=== PATIENT | male | born 1970 | race Caucasian/White ===

== ENCOUNTER 2023-09-20 21:24 | Emergency (ER) | payer MEDICARE, MEDICAID, SELFPAY ==
--- NOTE | 2023-09-20 | ECG_ITS ---
Test Reason : SEIZURE Blood Pressure : / mmHG Vent. Rate : 089 BPM Atrial Rate : 089 BPM P-R Int : 140 ms QRS Dur : 084 ms QT Int : 364 ms P-R-T Axes : 050 049 036 degrees QTc Int : 442 ms Normal sinus rhythm Normal ECG When compared with ECG of 25-JUL-2004 21:42, No significant change was found Referred By: Generic ED Physician Electronically Signed By:ANDRES PROCTOR MD
[2023-09-20 21:37] VITALS: BP 130/90; BP 151/103; PULSE 89; PULSE 90; RESP 18; TEMP 36.6; O2SAT 96; BMI 25.8
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
[2023-09-20 22:15] LABS: MANUAL DIFF FLAG NO
[2023-09-20 22:16] LABS: Basophils Absolute Auto 0.1 X10*3/uL (0.0-0.2); Basophils Percent Auto 0.5 % (0-2); Eosinophils Absolute Auto 0.2 X10*3/uL (0.0-0.4); Eosinophils Percent Auto 2.1 % (0-4); Hematocrit 35.9 % (42.0-52.0); Hemoglobin 12.7 g/dl (14.0-18.0); Imm Gran Abs Auto 0.03 X10*3/uL (0.00-0.03); Imm Gran Pct Auto 0.3 % (0.0-0.4); Lymphocytes Absolute Auto 2.6 X10*3/uL (1.2-4.9); Lymphocytes Percent Auto 23.8 % (20-40); Mean Corpuscular HGB Conc 35.4 g/dl (31.0-36.0); Mean Corpuscular Hemoglobin 32.7 pg (27.0-33.0); Mean Corpuscular Volume 92.5 fL (80.0-98.0); Mean Platelet Volume 9.5 fL (9.4-12.4); Monocytes Absolute Auto 0.6 X10*3/uL (0.1-1.2); Monocytes Percent Auto 5.1 % (2-11); Neutrophils Absolute Auto 7.6 x10*3/uL (2.0-8.3); Neutrophils Percent Auto 68.2 % (45-73); Platelet Count 225 X10*3/uL (160-400); Red Blood Count 3.88 X10*6/uL (4.60-5.80); Red Cell Distribution Width 12.7 % (11.0-16.0); White Blood Count 11.1 X10*3/uL (4.8-10.8)
[2023-09-20 22:23] LABS: Prothrombin Time 12.2 SEC (11.1-13.3)
[2023-09-20 22:26] LABS: Lactic Acid 1.4 mmol/L (0.5-2.0)
[2023-09-20 22:31] LABS: Alanine Aminotransferase 19 U/L (0-40); Albumin Level 3.8 g/dL (3.5-5.0); Alkaline Phosphatase 68 U/L (39-117); Anion Gap 13 (12-20); Aspartate Amino Transferase 16 U/L (5-37); Bilirubin Total 0.3 mg/dL (0.0-1.0); Blood Urea Nitrogen 11 mg/dL (9-16); Calcium 8.9 mg/dL (8.4-10.2); Carbon Dioxide 23 mmol/L (22-29); Chloride 105 mmol/L (96-108); Creatinine Clr Calc Pharmacy 110.2; Estimated Glomerular Filt Rate > 60; Glucose Random 133 mg/dL (60-115); Potassium 3.7 mmol/L (3.3-5.1); Sodium 137 mmol/L (135-145); Total Protein 6.5 g/dL (6.5-8.0)
[2023-09-20 22:42] LABS: Ethanol < 10 mg/dL; Magnesium 1.9 mg/dL (1.6-2.6); Troponin-I High Sensitivity < 2.7 ng/L (<3.5-35.0)
--- NOTE | 2023-09-20 22:48 | PC.NURSE ---
Pt resting comfortably in bed. Plan of care ongoing.
[2023-09-20 23:13] LABS: Appearance Urine Clear; Color Urine Yellow; Glucose Urine UA Negative (Negative); Leukocyte Esterase Urine Small (1+) (Negative); Nitrite Urine Negative (Negative); UMIC TRIGGER UACC YES; Urine Blood Negative (Negative); Urine Ketones Negative (Negative); Urine Protein Negative (Neg-Trace)
[2023-09-20 23:17] LABS: Bacteria Urine None Seen (None Seen); Hyaline Casts Urine 0-2 /LPF (0-2); RBC Urine 0-2 /HPF (0-2); Squamous Epithelial Cell Urine 0-2 /HPF (0-2); UACC Culture Trigger YES
[2023-09-20 23:21] LABS: Amphetamine Screen Urine Not Detected (Not Detect); Barbiturates, Urine Not Detected (Not Detect); Benzodiazepines Screen Urine Not Detected (Not Detect); Cannabinoid Screen Urine POSITIVE (Not Detect); Cocaine Screen Urine Not Detected (Not Detect); Fentanyl, urine Not Detected (Not Detect); Opiate Screen Urine Not Detected (Not Detect); Phencyclidine Screen Urine Not Detected (Not Detect)
[2023-09-21] MEDS: cefuroxime axetiL 500 MG TABLET PO (00:03)
--- NOTE | 2023-09-21 00:06 | PC.NURSE ---
Pt ca&ox4, no signs of distress. Pt medicated per mar. Plan of care ongoing.
--- NOTE | 2023-09-21 00:22 | MHC.EDTECH ---
call out to nathanael at 0020 to book transport for pt back home, estimated eta given was 0100
== END 2023-09-21 02:05 | disposition home or self-care (01) ==
PROVIDERS: Emergency Provider Emergency Medicine; PCP Family Medicine
DX: N39.0 Urinary tract infection, site not specified (principal); R56.9 Unspecified convulsions; Z87.820 Personal history of traumatic brain injury; Z79.899 Other long term (current) drug therapy; Z91.148 Patient's other noncompliance with medication regimen for other reason
CPT/HCPCS: 36415; 80053; 80307; 81001; 83605; 83735; 84484; 85025; 85610; 87086; 93005; 99283; 99284

== ENCOUNTER → 2023-09-20 22:11 | Outpatient (BNV) | payer MEDICARE, MEDICAID, SELFPAY | PROVIDERS: Emergency Provider Emergency Medicine; PCP Family Medicine; Visit Provider Internal Medicine Cardiovascular Disease | DX: R56.9 Unspecified convulsions (principal) | CPT/HCPCS: 93010 ==

== ENCOUNTER 2024-06-10 08:36 | Emergency (ER) | payer MEDICARE, MEDICAID, SELFPAY ==
[2024-06-10 08:38] VITALS: BP 145/94; BP 145/98; PULSE 80; PULSE 85; RESP 14; TEMP 36.6; O2SAT 97; O2SAT 98; BMI 22.5
--- NOTE | 2024-06-10 08:44 | ECG_ITS ---
Test Reason : SEIZURES Blood Pressure : / mmHG Vent. Rate : 068 BPM Atrial Rate : 068 BPM P-R Int : 126 ms QRS Dur : 098 ms QT Int : 400 ms P-R-T Axes : 053 061 050 degrees QTc Int : 425 ms Normal sinus rhythm Normal ECG When compared with ECG of 20-SEP-2023 22:11, No significant change was found Referred By: Gabby Lr Electronically Signed By:ANDRES PROCTOR MD
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
[2024-06-10 08:54] VITALS: BP 139/96; PULSE 74; RESP 17; O2SAT 98
[2024-06-10 09:25] LABS: Basophils Percent Auto 0.8 % (0-2); Eosinophils Absolute Auto 0.1 X10*3/uL (0.0-0.4); Eosinophils Percent Auto 1.7 % (0-4); Hematocrit 36.7 % (42.0-52.0); Hemoglobin 13.5 g/dl (14.0-18.0); Imm Gran Abs Auto 0.01 X10*3/uL (0.00-0.03); Imm Gran Pct Auto 0.2 % (0.0-0.4); Lymphocytes Absolute Auto 1.3 X10*3/uL (1.2-4.9); Lymphocytes Percent Auto 27.6 % (20-40); MANUAL DIFF FLAG NO; Mean Corpuscular HGB Conc 36.8 g/dl (31.0-36.0); Mean Corpuscular Hemoglobin 32.5 pg (27.0-33.0); Mean Corpuscular Volume 88.4 fL (80.0-98.0); Monocytes Absolute Auto 0.4 X10*3/uL (0.1-1.2); Monocytes Percent Auto 7.9 % (2-11); Neutrophils Percent Auto 61.8 % (45-73); Red Blood Count 4.15 X10*6/uL (4.60-5.80); Red Cell Distribution Width 11.8 % (11.0-16.0); White Blood Count 4.8 X10*3/uL (4.8-10.8)
[2024-06-10 09:31] LABS: Lactic Acid 1.3 mmol/L (0.5-2.0)
[2024-06-10 09:34] LABS: Alanine Aminotransferase 81 U/L (0-40); Alkaline Phosphatase 81 U/L (39-117); Anion Gap 12 (12-20); Aspartate Amino Transferase 56 U/L (5-37); Bilirubin Direct 0.4 mg/dL (0.0-0.5); Blood Urea Nitrogen 11 mg/dL (9-16); Calcium 9.1 mg/dL (8.4-10.2); Carbon Dioxide 23 mmol/L (22-29); Chloride 106 mmol/L (96-108); Creatinine Clr Calc Pharmacy 120.7; Estimated Glomerular Filt Rate > 60; Ethanol < 10 mg/dL; Glucose Random 103 mg/dL (60-115); Lipase 17 U/L (8-78); Magnesium 1.6 mg/dL (1.6-2.6); Potassium 3.8 mmol/L (3.3-5.1); Sodium 137 mmol/L (135-145); Total Protein 6.6 g/dL (6.5-8.0)
[2024-06-10 09:59] LABS: Platelet Count 132 X10*3/uL (160-400)
--- NOTE | 2024-06-10 10:30 | PC.NURSE ---
Pt is now more alert than when he first arrived, he does not remember being brought in this morning. Pt has a current plan of care with neuro for THC, at this time since being at [facility] he has not been able to smoke. PT was seen at [facility] this weekend as well as being started on Keppra, pt stating meds no longer work for him but he was willing to try. Pt labs are back, to place d/c for patient to return to [facility] at this time.
[2024-06-10 11:36] VITALS: BP 139/96; PULSE 74; RESP 17; TEMP 37.1; O2SAT 98
== END 2024-06-10 11:36 | disposition home or self-care (01) ==
PROVIDERS: Emergency Provider Emergency Medicine; PCP Family Medicine
DX: G40.909 Epilepsy, unspecified, not intractable, without status epilepticus (principal); Z87.820 Personal history of traumatic brain injury
CPT/HCPCS: 36415; 80048; 80076; 80307; 82550; 83605; 83690; 83735; 85025; 93005; 99283; 99284

== ENCOUNTER → 2024-06-10 08:44 | Outpatient (BNV) | payer MEDICARE, MEDICAID, SELFPAY | PROVIDERS: Emergency Provider Emergency Medicine; PCP Family Medicine; Visit Provider Internal Medicine Cardiovascular Disease | DX: G40.89 Other seizures (principal) | CPT/HCPCS: 93010 ==

== ENCOUNTER 2024-07-11 18:50 | Emergency (ER) | payer MEDICARE, MEDICAID, SELFPAY ==
--- NOTE | ~2024-07-11 | CT_ITS ---
EXAMINATION: NONCONTRAST HEAD CT INDICATION INFORMATION: Headache COMPARISON: None TECHNIQUE: Noncontrast CT examinations of the head was performed. Coronal and sagittal images were created for each examination at the technologist workstation. This CT examination was performed using dose optimization techniques as appropriate, variously including the following: *Automated exposure control *Adjustment of mA and/or kV according to patient size (this includes techniques or standardized protocols for targeted exams where dose is matched to indication/reason for exam; i.e. extremities or head) *Use of iterative reconstruction technique DLP: 676 mGy-cm FINDINGS: Head: There is no evidence of acute intracranial hemorrhage or territorial infarction. No abnormal mass effect or midline shift is seen. Seo to white matter differentiation is well preserved. No extra-axial fluid collections are identified. No hydrocephalus. No significant volume loss. There is no abnormal attenuation within the brain parenchyma. No acute osseous or soft tissue abnormality. Mucosal thickening in the left frontal and anterior ethmoid air cells. CT/CT head/brain wo IV con IMPRESSION: No acute intracranial abnormality. Mucosal thickening in the left frontal and anterior ethmoid air cells. Electronically signed by: Tariq uLna MD 07/11/2024 09:26 PM EST
[2024-07-11 18:58] VITALS: BP 136/86; PULSE 84; O2SAT 97
[2024-07-11 18:59] VITALS: BP 142/79; PULSE 73; RESP 18; TEMP 36.3; O2SAT 97; BMI 23.4
--- NOTE | 2024-07-11 19:41 | ED.SEIZURE ---
HPI - Seizure General Chief Complaint: Seizure Stated Complaint: SEIZURE Time Seen by Provider: 07/11/24 19:00 Source: patient, EMS and old records reviewed Mode of arrival: EMS Limitations: no limitations History of Present Illness ED Provider: ALYSSA DELGADO Narrative: 53 yo male with PMH of ETOH use disorder, seizures with about 20+ per month since a TBI in 1999 he tells me he has been in either [facility] or [facility] since June due to ETOH relapse after his first DC from [facility] early June. He has been on keppra he thinks since [facility] last time he was here they had him on 750mg BID of keppra. Today reportedly had severel [facility] and EMS noted he had another 10 second GTC seizure. On arrival to the ED when I saw him he was fluent and carrying on a conversation and able to remember all events. He then tells me to fuck off and not touch him or his head. MD complaint: seizure Onset (ago): hour(s) Description of Episode: loss of consciousness and tonic-clonic movement -: minutes(s) Witnessed: Yes - by Bystander Trauma: No Seizure History: Yes Possible Precipitating Event: other (unclear he states he takes his medications and has not drank in a month) Associated symptoms: other (headache) Treatments prior to arrival: benzodiazepines (IM 10mg versed) Related Data Previous Rx's ?Medication ?Instructions ?Recorded cefuroxime axetil 500 mg tablet 500 mg PO BID #13 tabs 09/20/23 Allergies Allergy/AdvReac Type Severity Reaction Status Date / Time lamotrigine [From Lamictal] Allergy Unknown Verified 07/11/24 19:02 lorazepam [From Ativan] Allergy Unknown Verified 07/11/24 19:02 olanzapine [From Zyprexa] Allergy Unknown Verified 07/11/24 19:02 Penicillins Allergy Unknown Verified 07/11/24 19:02 Review of Systems Review of Systems: Constitutional : No Fever, No Chills, No Fatigue ENT/Mouth : No sore throat, No Rhinorrhea Eyes: No Eye Pain, No Swelling, No Redness Cardiovascular : No Chest Pain, No SOB, No Dyspnea on Exertion Respiratory : No Cough, No Sputum Gastrointestinal : No Nausea, No Vomiting, No Diarrhea, No abdominal Pain Genitourinary : No Dysuria, No Urinary Frequency, No Hematuria, Musculoskeletal : No joint pain, No Myalgias, No Joint Swelling Skin : No Skin Lesions, No rash Neuro : No Weakness, No Numbness, No Dizziness, positive Headache Psych : No Anxiety/Panic, No Depression Heme/Lymph: No Bruising, No Bleeding,No Lymphadenopathy Endocrine : No Polyuria, No Polydipsia All other systems reviewed and are negative [facility] Past Medical History Attestation statement: The following information was validated with the patient. Source: old records reviewed Medical History Epilepsy Social History Social History Patient Tobacco Use Status: Tobacco use Unknown Advance Directives: No Advance Directives Information Provided: No Do you have a plan to hurt others: No Plan Physical Exam Vital Signs: Vital Signs: Last Vital Signs Temp 97.3 F 07/11/24 18:59 Pulse 73 07/11/24 18:59 Resp 18 07/11/24 18:59 BP 142/79 H 07/11/24 18:59 Pulse Ox 97 07/11/24 18:59 O2 Del Method Room Air 07/11/24 18:59 BMI result Body Mass Index 23.4 Appearance: Alert. Oriented X3. No acute distress. He is refusing us to help position him while he sleeps and keeps stating don't touch his fucking head. He will not fully participate in the exam Eyes: Pupils equal, round and reactive to light. ENT: Pharynx normal. no acute trauma noted old scars but no new signs of trauma he also tells me he remembered the staff helping him sit down Neck: Normal inspection. Neck supple. CVS: Normal heart rate and rhythm. Pulses normal. Respiratory: No respiratory distress. Breath sounds normal. Abdomen: Soft and nontender. Skin: Skin warm and dry. Normal skin color. Normal skin turgor. Extremities: No lower extremity edema. No calf ttp Neuro: Oriented X 3. no obvious focal deficit, moving all extremities, withdraws and localizes Medical Decision Making Medical Decision Making MDM Narrative: 53 yo male with PMH of ETOH use disorder, seizures with about 20+ per month since a TBI in 1999 now here with reported seizure several of them and c/o headache beforehand. At this time I have ordered labs, CT head, he is belligerent unclear if this is him postictal or baseline. Will observe closely and he was not sent over with records from [facility]. Differential Diagnosis Differential Diagnoses: The differential diagnosis associated with the presentation includes seizure, ICH, headache Admission/Observation Consideration of admission/observation: Escalation of care including admission/observation considered GCS 15, CT head negative, normal HCO3 and no tachycardia presentation again similar to his prior visit with VS and labs not matching several seizures he has been observed and is at his baseline stable for DC asking to leave states he wants to go back Lab Data MDM Lab Attestation statement: I reviewed the patient's lab results. 07/11/24 19:57 07/11/24 19:57 Labs: Lab Results 07/11/24 Range/Units 19:57 WBC 8.7 (4.8-10.8) X10*3/uL RBC 4.49 L (4.60-5.80) X10*6/uL Hgb 14.0 (14.0-18.0) g/dl Hct 39.4 L (42.0-52.0) % MCV 87.8 (80.0-98.0) fL MCH 31.2 (27.0-33.0) pg MCHC 35.5 (31.0-36.0) g/dl RDW 11.9 (11.0-16.0) % Plt Count 222 D (160-400) X10*3/uL MPV 9.0 L (9.4-12.4) fL Immature Gran % (Auto) 0.2 (0.0-0.4) % Neut % (Auto) 54.1 (45-73) % Lymph % (Auto) 32.6 (20-40) % [place] % (Auto) 7.3 (2-11) % Eos % (Auto) 5.0 H (0-4) % Baso % (Auto) 0.8 (0-2) % Lymph # (Auto) 2.8 (1.2-4.9) X10*3/uL [place] # (Auto) 0.6 (0.1-1.2) X10*3/uL Eos # (Auto) 0.4 (0.0-0.4) X10*3/uL Baso # (Auto) 0.1 (0.0-0.2) X10*3/uL Abs Immat Gran (auto) 0.02 (0.00-0.03) X10*3/uL Absolute Neuts (auto) 4.7 (2.0-8.3) x10*3/uL Absolute Nucleated RBC 0.000 (0.0-0.012) X10*3/uL Nucleated RBC % (auto) 0.0 (0.0-0.2) /100WBC Sodium 137 (135-145) mmol/L Potassium 3.8 (3.3-5.1) mmol/L Chloride 108 (96-108) mmol/L Carbon Dioxide 22 (22-29) mmol/L Anion Gap 11 L (12-20) BUN 19 H (9-16) mg/dL Creatinine 0.87 (0.5-1.4) mg/dL Estim Creat Clear Calc 112.2 Estimated GFR > 60 Random Glucose 95 (60-115) mg/dL Calcium 9.0 (8.4-10.2) mg/dL Magnesium 2.0 (1.6-2.6) mg/dL Total Bilirubin 0.4 (0.0-1.0) mg/dL Direct Bilirubin 0.1 (0.0-0.5) mg/dL AST 34 (5-37) U/L ALT 57 H (0-40) U/L Alkaline Phosphatase 78 (39-117) U/L Total Protein 6.8 (6.5-8.0) g/dL Albumin 4.1 (3.5-5.0) g/dL Independent Interpretation I performed an independent interpretation of an: CT Scan (normal ) Radiology Impression Discussion of test interpretation with radiology: I have reviewed the radiologist's reading. Independent Historian Clinical information obtained from an independent historian. History obtained from or confirmed by: EMS External Record Review External record reviewed: Outpatient record Discharge Plan Discharge Clinical Impression: Epilepsy Qualifiers: Epilepsy type: unspecified Intractability: not intractable Status epilepticus: without status epilepticus Qualified Code(s): G40.909 - Epilepsy, unspecified, not intractable, without status epilepticus Patient Disposition: Home, Self-Care Instructions: Epilepsy (ED) Additional Instructions: CT head negative labs reassuring no seizures in ED return for any worsening symptoms or concerns. Prescriptions: No Action cefuroxime axetil 500 mg tablet 500 mg PO BID Qty: 13 0RF Print Language: Kenyan
--- NOTE | 2024-07-11 19:48 | PC.NURSE ---
Pt. to CT scan at this time. Pt. is repeatedly threatening staff not to touch his head, MD at bedside
[2024-07-11 20:03] LABS: MANUAL DIFF FLAG NO
[2024-07-11 20:06] LABS: Basophils Absolute Auto 0.1 X10*3/uL (0.0-0.2); Basophils Percent Auto 0.8 % (0-2); Eosinophils Absolute Auto 0.4 X10*3/uL (0.0-0.4); Hematocrit 39.4 % (42.0-52.0); Imm Gran Abs Auto 0.02 X10*3/uL (0.00-0.03); Imm Gran Pct Auto 0.2 % (0.0-0.4); Lymphocytes Absolute Auto 2.8 X10*3/uL (1.2-4.9); Lymphocytes Percent Auto 32.6 % (20-40); Mean Corpuscular HGB Conc 35.5 g/dl (31.0-36.0); Mean Corpuscular Hemoglobin 31.2 pg (27.0-33.0); Mean Corpuscular Volume 87.8 fL (80.0-98.0); Monocytes Absolute Auto 0.6 X10*3/uL (0.1-1.2); Monocytes Percent Auto 7.3 % (2-11); Neutrophils Absolute Auto 4.7 x10*3/uL (2.0-8.3); Neutrophils Percent Auto 54.1 % (45-73); Platelet Count 222 X10*3/uL (160-400); Red Blood Count 4.49 X10*6/uL (4.60-5.80); Red Cell Distribution Width 11.9 % (11.0-16.0); White Blood Count 8.7 X10*3/uL (4.8-10.8)
[2024-07-11 20:21] LABS: Alanine Aminotransferase 57 U/L (0-40); Albumin Level 4.1 g/dL (3.5-5.0); Alkaline Phosphatase 78 U/L (39-117); Anion Gap 11 (12-20); Aspartate Amino Transferase 34 U/L (5-37); Bilirubin Direct 0.1 mg/dL (0.0-0.5); Bilirubin Total 0.4 mg/dL (0.0-1.0); Blood Urea Nitrogen 19 mg/dL (9-16); Carbon Dioxide 22 mmol/L (22-29); Chloride 108 mmol/L (96-108); Creatinine Clr Calc Pharmacy 112.2; Estimated Glomerular Filt Rate > 60; Glucose Random 95 mg/dL (60-115); Potassium 3.8 mmol/L (3.3-5.1); Sodium 137 mmol/L (135-145); Total Protein 6.8 g/dL (6.5-8.0)
--- NOTE | 2024-07-11 21:07 | MHC.EDTECH ---
called Mariah Mas 3x for Medication information
--- NOTE | 2024-07-12 01:02 | PC.NURSE ---
EMS at bedside for transport.
[2024-07-12 01:28] VITALS: BP 142/79; PULSE 73; RESP 18; TEMP 36.3; O2SAT 97
== END 2024-07-12 01:10 | disposition home or self-care (01) ==
PROVIDERS: Emergency Provider Emergency Medicine; PCP Family Medicine
DX: G40.909 Epilepsy, unspecified, not intractable, without status epilepticus (principal); R55 Syncope and collapse; R51.9 Headache, unspecified; Z79.899 Other long term (current) drug therapy
CPT/HCPCS: 36415; 70450; 80048; 80076; 83735; 85025; 99282; 99284

== ENCOUNTER 2025-05-21 21:42 | Emergency (ER) | payer MEDICARE, MEDICAID, SELFPAY ==
[2025-05-21 21:52] VITALS: BP 148/87; PULSE 82; RESP 18; TEMP 36.8; O2SAT 99; BMI 21.0
--- NOTE | 2025-05-21 22:23 | PC.NURSE ---
Pt reports that if was not admitted or brought to the hospital he would kill someone or himself. Pt states I think about how I would do it all the time. I would stab them with my knife and I can swallow my pills or cut my own throat. Pt requested and given drink Plan of care ongoing.
--- OUTSIDE RECORDS SUMMARY | 2025-05-21 23:26 | XMS_ITS | Encounter Summary ---
Author Organization [facility] Address [address] [place] [address] Phone Care Team Providers Care Clip Riveter Name Role Phone Yaritza Diamond MD Primary Care Provider + [phone] Encounter Details Date Type Department Care Team (Late st Contact Info) Description 02/20/2025 Procedure Pass [facility], Ct Scan - [facility] [place] [facility] [address] [place] [address] Social History Tobacco Use Types Packs/Day Years Used Date Smoking Tobacco: Every Day Smokeless Tobacco: Never Alcohol Use Standard Drinks/Week Comments Yes 2 (1 standard drink = 0.6 oz pur e alcohol) two beer reported today Education Answer Date Recorded Are you interested in more education? Not on selin e 11/28/2022 Are you concerned about learning? Not on file 11/28/2022 No 11/28/2022 No 11/28/2022 Food Answer Date Recorded Within the past 6 months we worried whether our food would run out before we got money to buy more. Sometimes True 025 Within the past 6 months the food we bought just didn't last and we didn't have enough money to get more. Sometimes True 02/01 Residential Stability Answer Date Recor ded What is your housing situation today? I do not have housing (staying in a hotel, in a half-way, living outside on the street, on a beach, in a car, or in a park) 02/20/2025 How many times have you move d in the past 12 months? Two or more times 02/20/2025 Paying for Meds Answer Date Recorded Do you have trouble paying for medicines? No 02/20/2025 Paying Utility Bills Answer Date Record ed Do you have trouble paying your heating or elect ricity bill? Yes 02/20/2025 Transportation Answer Date Recorded Has the lack of transportati on kept you from medical appointments or from getting medications? Yes 02/20/2025 Digital Access Answer Date Recorded Yes 02/20/2025 Yes 02/20/2025 Do you have reliable internet access at home? No 02/20/2025 Do you have a device (e.g., phone, tablet, computer) with a working camera? Yes 02/20/2025 Intimate Partner Violence Answer Date R ecorded Are you denied basic needs s uch as food, clothing, or medical care? Patient unable to respond 02/20/2025 In the past 12 months have y ou been in a relationship with a person who hurts, threatens, or tries to control you? Patient unable to respond 02/20/2025 Are you denied basic needs s uch as food, clothing, or medical care? Patient unable to respond 02/20/2025 In the past 12 months have y ou been in a relationship with a person who hurts, threatens, or tries to control you? Patient unable to respond 02/20/2025 Sex and Gender Information Value Date Recorded Sex Assigned at Male 08/10/2017 9:38 AM EST Legal Sex Male 9:32 PM EDT Gender Identity Male 08/10/2017 9:38 AM EST Sexual Orientation Straight 08/10/2017 9: 38 AM EST documented as of this encounter Functional Status * Calculated C-SSRS Risk Score (Lifetime/Recent) Answer Date of Assessment Author High Risk 02/20/2025 3:15 PM EDT Korina Busch , PREM * [place] Suicide Severity Rating Scale (Screener/Recent Self-Report) Question Answer Date of Assessment Author 1. Wish to be (Past 1 Month) Yes 025 3:15 PM EDT Korina Busch, RN 2. Non-Specific Active Suici kya Thoughts (Past 1 Month) Yes 02/20/2025 3:15 PM EDT Korina Busch, RN 3. Active Suicidal Ideation with any Methods (Not Plan) Without Intent to Act (Past 1 Month) No 02/20/2025 3:15 PM EDT Korina Busch, RN 4. Active Suicidal Ideation with Some Intent to Act, Without Specific Plan (Past 1 Month) No 02/20/2025 3:15 PM EDT Korina Busch RN 5. Active Suicidal Ideation with Specific Plan and Intent (Past 1 Month) Yes 02/20/2025 3:15 PM EDT Christy Busch RN 6. Suicidal Behavior (Lifetime) Yes 5 3:15 PM EDT Korina Busch RN 6. Suicidal Behavior (3 Months) No 5 3:15 PM EDT Korina Busch RN documented as of this encounter Plan of Treatment Not on file documented as of this encounter Visit Diagnoses Not on filedocumented in this encounter Care Teams Clip Riveter Relationship Specialty Start Date End Date Yaritza Diamond MD [address] [place] [address] [email or web address] PCP - General Family Medicine 07/06/24 documented as of this encounter Additional Source Comments The information contained in this document represents components of the legal health record. It is not the complete legal health record.[facility]
--- OUTSIDE RECORDS SUMMARY | 2025-05-21 23:26 | XMS_ITS | Encounter Summary ---
Author Organization [facility] Address [address] [place] [address] Phone Care Team Providers Care Brand Recorder Name Role Phone Yaritza Diamond MD Primary Care Provider + [phone] Encounter Details Date Type Department Care Team (Late st Contact Info) Description 04/17/2025 Procedure Pass [facility], Ct Scan - [facility] [address] [place] [address] Social History Tobacco Use Types Packs/Day Years [...] before we got money to buy more. Unable to assess 025 Within the past 6 months the food we bought just didn't last and we didn't have enough money to get more. Unable to assess 04/17/2025 Residential Stability Answer Date Recor ded What is your housing situation today? Unable to assess 04/17/2025 How many times have you moved in the past 12 thu ths? Unable to assess 04/17/2025 Paying for Meds Answer Date Recorded Do you have trouble paying for medicines? Unable to assess 04/17/2025 Paying Utility Bills Answer Date Record ed Do you have trouble paying y our heating or electricity bill? Unable to assess 04/17/2025 Transportation Answer Date Recorded Has the lack of transportati on kept you from medical appointments or from getting medications? Unable to assess 04/17/2025 Digital Access Answer Date Recorded No 04/17/2025 No 04/17/2025 Do you have reliable internet access at home? Un able to assess 04/17/2025 Do you have a device (e.g., phone, tablet, computer) with a working camera? Unable to assess 04/17/2025 Intimate Partner Violence Answer Date R ecorded Are you denied basic needs s uch as food, clothing, or medical care? Patient unable to respond 04/17/2025 In the past 12 months have y ou been in a relationship with a person who hurts, threatens, or tries to control you? Patient unable to respond 04/17/2025 Are you denied basic needs s uch as food, clothing, or medical care? Patient unable to respond 04/17/2025 In the past 12 months have y ou been in a relationship with a person who hurts, threatens, or tries to control you? Patient unable to respond 04/17/2025 Sex and Gender Information Value Date Recorded Sex Assigned at Male 08/10/2017 9:38 AM EST Legal Sex Male 9:32 PM EDT Gender Identity Male 08/10/2017 9:38 AM EST Sexual Orientation Straight 08/10/2017 9: 38 AM EST documented as of this encounter Plan of Treatment Not on file documented as of this encounter Visit Diagnoses Not on filedocumented in this encounter Care Teams Brand Recorder Relationship Specialty Start Date End Date Yaritza Diamond MD [address] [place] [address] [email or web address] PCP - General Family Medicine 07/06/24 documented as of this encounter Additional Source Comments The information contained in this document represents components of the legal health record. It is not the complete legal health record.[facility]
--- OUTSIDE RECORDS SUMMARY | 2025-05-21 23:26 | XMS_ITS | Clinical Summary ---
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 Osseous and Extracranial Structures: No calvarial fracture or significantsoft tissue hematoma. No significant paranasal sinus disease. No orbitalabnormality. CERVICAL SPINE: Alignment and Vertebrae: Alignment is normal. Vertebral bodies andposterior elements are intact. Discs and Endplates: Normal. Other Findings: None. IMPRESSION: 1. No acute intracranial findings. 2. No acute fracture or traumatic malalignment of the cervical spine. Neptali Watson MD IM CT XSPECIALTY ORDERABLES Final Result * CT HEAD WITHOUT CONTRAST (04/17/2025 2:11 PM EDT) Anatomical Region Laterality Modality Head Computed Tomogra phy 04/17/2025 2:57 PM EDT Impressions 04/17/2025 3:02 PM EDT 1. No acute intracranial findings. 2. No acute fracture or traumatic malalignment of the cervical spine. Narrative 04/17/2025 3:[address] HEAD WITHOUT CONTRAST, CT CERVICAL SPINE WITHOUT CONTRAST Referring clinician's provided indication for this examination in [facility]: * Seizure, abnormal neuro exam TECHNIQUE: CTs of the head and cervical spine were performed without intravenous contrast using tailored dose modulation techniques. Images were reconstructed in the axial, coronal, and sagittal planes. COMPARISON: CT HEAD WITHOUT CONTRAST FINDINGS: HEAD: Brain Parenchyma: Normal. No midline shift, mass effect, parenchymal hemorrhage, or evidence of acute territorial infarct. Ventricular System and Extra-Axial Spaces: Normal. No extra-axial fluid collections. Basal cisterns are patent. No hydrocephalus. Osseous and Extracranial Structures: No calvarial fracture or significant soft tissue hematoma. No significant paranasal sinus disease. No orbital abnormality. CERVICAL SPINE: Alignment and Vertebrae: Alignment is normal. Vertebral bodies and posterior elements are intact. Discs and Endplates: Normal. Other Findings: None. Procedure Note Daniel Olmedo MD - 04/17/2025 CT HEAD WITHOUT CONTRAST, CT CERVICAL SPINE WITHOUT CONTRAST Referring clinician's provided indication for this examination in [facility]: *Seizure, abnormal neuro exam TECHNIQUE: CTs of the head and cervical spine were performed withoutintravenous contrast using tailored dose modulation techniques. Imageswere reconstructed in the axial, coronal, and sagittal planes. COMPARISON: CT HEAD WITHOUT CONTRAST FINDINGS: HEAD: Brain Parenchyma: Normal. No midline shift, mass effect, parenchymalhemorrhage, or evidence of acute territorial infarct. Ventricular System and Extra-Axial Spaces: Normal. No extra-axial fluidcollections. Basal cisterns are patent. No hydrocephalus. Osseous and Extracranial Structures: No calvarial fracture or significantsoft tissue hematoma. No significant paranasal sinus disease. No orbitalabnormality. CERVICAL SPINE: Alignment and Vertebrae: Alignment is normal. Vertebral bodies andposterior elements are intact. Discs and Endplates: Normal. Other Findings: None. IMPRESSION: 1. No acute intracranial findings. 2. No acute fracture or traumatic malalignment of the cervical spine. Neptali Watson MD IM CT HEAD/NECK Final Result * (ABNORMAL) Comprehensive metabolic panel (02/21/2025 6:00 AM EDT) SODIUM 138 133 - 146 mmol/L [facility] POTASSIUM 4.0 3.3 - 5.1 mmol/L [facility] CHLORIDE 103 96 - 108 mmol/L [facility] CO2 25 21 - 35 mmol/L [facility] BUN 16 6 - 19 mg/dL [facility] CREATININE 0.70 0.5 - 1.5 mg/dL [facility] GLUCOSE 103(H) 70 - 99 mg/dL [facility] ALBUMIN 3.7(L) 3.9 - 4.8 g/dL [facility] TOTAL PROTEIN 6.2(L) 6.5 - 8.0 g/dL [facility] CALCIUM 8.9 8.4 - 10.3 mg/dL [facility] ALKALINE PHOSPHATASE 124(H) 39 - 117 U/L [facility] TOTAL BILIRUBIN 0.4 0.0 - 1.2 mg/dL [facility] AST 32 0 - 37 U/L [facility] ALT 32 0 - 40 U/L [facility] GLOBULIN 2.5 1 - 4.8 g/dL [facility] EGFR 111 >59 mL/min/1.7 3m2 [facility] Comment:Estimated glomerular filtration rate calculated using the CKD-EPI refit equation. ANION GAP 14 10 - 20 mmol/L [facility] Blood 02/21/2025 6:00 AM EDT 02/21/2025 6:31 AM EDT us Sharee Traore EDITOR DEPARTMENT LAB BLOOD ORDERABLES Fi nal Result Performing Organization Address City/[facility]/ZIP Co de Phone Number [address] [address] * (ABNORMAL) 25-OH vitamin D (02/21/2025 6:00 AM EDT) 25 [place] VIT D (TOTAL) 26(L) 30 - 60 ng/mL [facility] Blood 02/21/2025 6:00 AM EDT 02/21/2025 6:31 AM EDT Sharee Traore EDITOR DEPARTMENT LAB BLOOD ORDERABLES Fi nal Result Performing Organization Address [facility] Co de Phone Number [address] [address] * (ABNORMAL) Levetiracetam (Keppra) level (02/20/2025 3:43 PM EDT) Levetiracetam 51.0(H) 12.0 - 46.0 mcg/mL [facility] Comment:This test was develo ped and its performance characteristics determined by the [facility]. It has not been cleared or approved by the US Food and Drug Administration. This laboratory is certified under CLIA as qualified to perform high complexity clinical laboratory testing. Blood 02/20/2025 3:43 PM EDT 02/20/2025 3:52 PM EDT us Quinn Martinez DO LAB BLOOD ORDERABLES Final Res ult Performing Organization Address City/[facility]/ZIP Co de Phone Number [address] [address] * XR HIP 2 VW RIGHT PLUS PELVIS (02/20/2025 1:56 PM EDT) Anatomical Region Laterality Modality Hip Right Computed Radiogr aphy 02/20/2025 2:45 PM EDT Impressions 02/20/2025 2:47 PM EDT No displaced fracture. Narrative 02/20/2025 2:47 PM EDT XR HIP 2 VW RIGHT PLUS PELVIS Referring clinician's provided indication for this examination in [facility]: Pain; reported prior dislocation and non-op fracture COMPARISON: XR FEMUR 2 OR MORE VIEWS (RIGHT) FINDINGS: Pelvis: No displaced fracture. Intact sacroiliac joints and pubic symphysis. Frontal evaluation of the left hip demonstrates normal joint space. Right hip: No displaced fracture. Normal alignment. Normal joint space. Procedure Note Rory Stark MD, MPH - 02/20/2025 XR HIP 2 VW RIGHT PLUS PELVIS Referring clinician's provided indication for this examination in [facility]:Pain; reported prior dislocation and non-op fracture COMPARISON: XR FEMUR 2 OR MORE VIEWS (RIGHT) FINDINGS: Pelvis: No displaced fracture. Intact sacroiliac joints and pubicsymphysis. Frontal evaluation of the left hip demonstrates normal jointspace. Right hip: No displaced fracture. Normal alignment. Normal joint space. IMPRESSION: No displaced fracture. Neptali Watson MD IMG XR PELVIS F inal Result * CT CERVICAL SPINE WITHOUT CONTRAST (02/20/2025 10:38 AM EDT) Anatomical Region Laterality Modality C-spine Computed Tomogra phy 02/20/2025 11:1 3 AM EDT Impressions 02/20/2025 11:27 AM EDT 1. No acute intracranial findings. 2. No acute fracture or traumatic malalignment of the cervical spine. Narrative 02/20/2025 11:[address] HEAD WITHOUT CONTRAST, CT CERVICAL SPINE WITHOUT CONTRAST Referring clinician's provided indication for this examination in [facility]: * Seizure, abnormal neuro exam TECHNIQUE: CTs of the head and cervical spine were performed without intravenous contrast using tailored dose modulation techniques. Images were reconstructed in the axial, coronal, and sagittal planes. COMPARISON: CT HEAD WITHOUT CONTRAST ; CT CERVICAL SPINE WITHOUT CONTRAST FINDINGS: HEAD: Brain Parenchyma: No midline shift, mass effect, parenchymal hemorrhage, or evidence of acute territorial infarct. Ventricular System and Extra-Axial Spaces: No extra-axial fluid collections. Basal cisterns are patent. No hydrocephalus. Osseous and Extracranial Structures: No calvarial fracture. Focal soft tissue swelling at the right frontal vertex (2:53). Mild pansinus mucosal thickening. Patchy ethmoid air cell opacification. No orbital abnormality. CERVICAL SPINE: Alignment and Vertebrae: Alignment is normal. No fracture. Vertebral bodies and posterior elements are intact. Mild multilevel facet hypertrophy. Discs and Endplates: Disc spaces are relatively well preserved with mild multilevel endplate spurring Other Findings: Mild right apical subpleural emphysema. Procedure Note Rory Stark MD, MPH - 02/20/2025 CT HEAD WITHOUT CONTRAST, CT CERVICAL SPINE WITHOUT CONTRAST Referring clinician's provided indication for this examination in [facility]: *Seizure, abnormal neuro exam TECHNIQUE: CTs of the head and cervical spine were performed withoutintravenous contrast using tailored dose modulation techniques. Imageswere reconstructed in the axial, coronal, and sagittal planes. COMPARISON: CT HEAD WITHOUT CONTRAST ; CT CERVICAL SPINEWITHOUT CONTRAST FINDINGS: HEAD: Brain Parenchyma: No midline shift, mass effect, parenchymal hemorrhage,or evidence of acute territorial infarct. Ventricular System and Extra-Axial Spaces: No extra-axial fluidcollections. Basal cisterns are patent. No hydrocephalus. Osseous and Extracranial Structures: No calvarial fracture. Focal softtissue swelling at the right frontal vertex (2:53). Mild pansinus mucosalthickening. Patchy ethmoid air cell opacification. No orbital abnormality. CERVICAL SPINE: Alignment and Vertebrae: Alignment is normal. No fracture. Vertebralbodies and posterior elements are intact. Mild multilevel facethypertrophy. Discs and Endplates: Disc spaces are relatively well preserved with mildmultilevel endplate spurring Other Findings: Mild right apical subpleural emphysema. IMPRESSION: 1. No acute intracranial findings. 2. No acute fracture or traumatic malalignment of the cervical spine. us Neptali Watson MD IM CT XSPECIALTY ORDERABLES Final Result * CT HEAD WITHOUT CONTRAST (02/20/2025 10:38 AM EDT) Anatomical Region Laterality Modality Head Computed Tomogra phy 02/20/2025 11:1 3 AM EDT Impressions 02/20/2025 11:27 AM EDT 1. No acute intracranial findings. 2. No acute fracture or traumatic malalignment of the cervical spine. Narrative 02/20/2025 11:[address] HEAD WITHOUT CONTRAST, CT CERVICAL SPINE WITHOUT CONTRAST Referring clinician's provided indication for this examination in [facility]: * Seizure, abnormal neuro exam TECHNIQUE: CTs of the head and cervical spine were performed without intravenous contrast using tailored dose modulation techniques. Images were reconstructed in the axial, coronal, and sagittal planes. COMPARISON: CT HEAD WITHOUT CONTRAST ; CT CERVICAL SPINE WITHOUT CONTRAST FINDINGS: HEAD: Brain Parenchyma: No midline shift, mass effect, parenchymal hemorrhage, or evidence of acute territorial infarct. Ventricular System and Extra-Axial Spaces: No extra-axial fluid collections. Basal cisterns are patent. No hydrocephalus. Osseous and Extracranial Structures: No calvarial fracture. Focal soft tissue swelling at the right frontal vertex (2:53). Mild pansinus mucosal thickening. Patchy ethmoid air cell opacification. No orbital abnormality. CERVICAL SPINE: Alignment and Vertebrae: Alignment is normal. No fracture. Vertebral bodies and posterior elements are intact. Mild multilevel facet hypertrophy. Discs and Endplates: Disc spaces are relatively well preserved with mild multilevel endplate spurring Other Findings: Mild right apical subpleural emphysema. Procedure Note Rory Stark MD, MPH - 02/20/2025 CT HEAD WITHOUT CONTRAST, CT CERVICAL SPINE WITHOUT CONTRAST Referring clinician's provided indication for this examination in [facility]: *Seizure, abnormal neuro exam TECHNIQUE: CTs of the head and cervical spine were performed withoutintravenous contrast using tailored dose modulation techniques. Imageswere reconstructed in the axial, coronal, and sagittal planes. COMPARISON: CT HEAD WITHOUT CONTRAST ; CT CERVICAL SPINEWITHOUT CONTRAST FINDINGS: HEAD: Brain Parenchyma: No midline shift, mass effect, parenchymal hemorrhage,or evidence of acute territorial infarct. Ventricular System and Extra-Axial Spaces: No extra-axial fluidcollections. Basal cisterns are patent. No hydrocephalus. Osseous and Extracranial Structures: No calvarial fracture. Focal softtissue swelling at the right frontal vertex (2:53). Mild pansinus mucosalthickening. Patchy ethmoid air cell opacification. No orbital abnormality. CERVICAL SPINE: Alignment and Vertebrae: Alignment is normal. No fracture. Vertebralbodies and posterior elements are intact. Mild multilevel facethypertrophy. Discs and Endplates: Disc spaces are relatively well preserved with mildmultilevel endplate spurring Other Findings: Mild right apical subpleural emphysema. IMPRESSION: 1. No acute intracranial findings. 2. No acute fracture or traumatic malalignment of the cervical spine. Neptali Watson MD [facility] CT HEAD/NECK Final Result * (ABNORMAL) Lipid panel (01/11/2025 6:46 AM EDT) HDL 55 mg/dL [facility] Comment: Interpretation <40 mg/dL: Low HDL cholesterol (major risk factor for CHD) Greater than or equal to 60 mg/dL: High HDL cholesterol ( negative risk factor for CHD) HDL - cholesterol is affected by a number of factors, e.g. smoking, excerise, hormones, sex and age. CHOLESTEROL 131 0 - 240 mg/dL [facility] TRIGLYCERIDES 61 30 - 160 mg/dL [facility] LDL 64 50 - 129 mg/dL [facility] Comment: LDL levels in terms of risk for coronary heart disease: <100 mg/dL: Optimal 100-129 mg/dL: Near or above optimal 130-159 mg/dL: Borderline high 160-189 mg/dL: High >190 mg/dL: Very High CARDIAC RISK RATIO 2.4(L) 3.4 - 5.0 [facility] Blood 01/11/2025 6:46 AM EDT 01/11/2025 6:58 AM EDT Estiven Ramírezo PMHNP- LAB BLOOD ORDERAB LES Final Result [facility] [address] [place] [address] from Last 3 Months or Most Recently Relevant to Health Maintenance Insurance MEDICARE PART A & B [facility]ICARE PART A & [facility] PART A & B [facility]IC[facility] PART A & B [facility] MEDICARE PART A & [facility] & B [facility] Advance Directives For more information, please contact: [phone] (9AM - 5PM [place], Thursday-Thursday) * Full Code (Latest Code Status on File) Date Activated Date Inactivated Comments 05/19/2025 5:12 PM Question Answer Comments Code Status Confirmed With: Patient * Full Code Date Activated Date Inactivated Comments 02/20/2025 4:48 PM 05/19/2025 5:12 PM Question Answer Comments Code Status Confirmed With: Patient * Full Code Date Activated Date Inactivated Comments 01/10/2025 8:34 PM 02/20/2025 4:48 PM Question Answer Comments Code Status Confirmed With: Patient Care Teams Shop Mechanic Relationship Specialty Start Date End Date Yaritza Diamond MD [address] [place] [address] [email or web address] PCP - General Family Medicine 07/06/24 Additional Source Comments The information contained in this document represents components of the legal health record. It is not the complete legal health record.[facility]
--- OUTSIDE RECORDS SUMMARY | 2025-05-21 23:26 | XMS_ITS | Encounter Summary ---
Author Organization Located Within [facility] Address [address] [place] [phone] Phone Care Team Providers Care Model Maker Plastic Name Role Phone Yaritza Diamond MD Primary Care Provider + [phone] Encounter Details Date Type Department Care Team (Late st Contact Info) Description 10/18/2024 Procedure Pass [facility], Ct Scan - [facility] [address] [place] [address] Social History Tobacco Use Types Packs/Day Years [...] on file 11/28/2022 No 11/28/2022 No 11/28/2022 Digital Access Answer Date Recorded No 12/29/2022 No 12/29/2022 Reliable internet access at home? Not on file 12/29/2022 Device with a working camera? Not on file Intimate Partner Violence Answer Date R ecorded Are you denied basic needs s uch as food, clothing, or medical care? No 10/18/2024 In the past 12 months have y ou been in a relationship with a person who hurts, threatens, or tries to control you? No 10/18/2024 Are you denied basic needs s uch as food, clothing, or medical care? No 10/18/2024 In the past 12 months have y ou been in a relationship with a person who hurts, threatens, or tries to control you? No 10/18/2024 Sex and Gender Information Value Date Recorded Sex Assigned at Male 08/10/2017 9:38 AM EST Legal Sex Male 9:32 PM EDT Gender Identity Male 08/10/2017 9:38 AM EST Sexual Orientation Straight 08/10/2017 9: 38 AM EST documented as of this encounter Functional Status * Calculated C-SSRS Risk Score (Lifetime/Recent) Answer Date of Assessment Author High Risk 10/18/2024 1:32 AM EDT Hailey Medina RN * [place] Suicide Severity Rating Scale (Screener/Recent Self-Report) Question Answer Date of Assessment Author 1. Wish to be (Past 1 Month) Yes 025 1:32 AM LIBBYT Hailey Medina RN 2. Non-Specific Active Suici kya Thoughts (Past 1 Month) Yes 10/18/2024 1:32 AM EDT Amanuel Medina RN 3. Active Suicidal Ideation with any Methods (Not Plan) Without Intent to Act (Past 1 Month) Yes 10/18/2024 1:32 AM EDT Hailey Raza RN 4. Active Suicidal Ideation with Some Intent to Act, Without Specific Plan (Past 1 Month) Yes 10/18/2024 1:32 AM EDT Hailey Raza RN 5. Active Suicidal Ideation with Specific Plan and Intent (Past 1 Month) Yes 10/18/2024 1:32 AM LIBBYT Hailey Medina RN 6. Suicidal Behavior (Lifetime) Yes 1:32 AM EDT Hailey Medina RN 6. Suicidal Behavior (3 Months) Yes 1:32 AM EDT Hailey Medina RN documented as of this encounter Plan of Treatment Not on file documented as of this encounter Visit Diagnoses Not on filedocumented in this encounter Additional Health Concerns Infection Onset Date Last Indicated Resolved Time CoV-Risk 10/11/2024 10/11/2024 10/22/2024 1:22 AM EDT documented as of this encounter Care Teams Model Maker Plastic Relationship Specialty Start Date End Date Yaritza Diamond MD [address] [place] [address] [email or web address] PCP - General Family Medicine 07/06/24 documented as of this encounter Additional Source Comments The information contained in this document represents components of the legal health record. It is not the complete legal health record.[facility]
--- OUTSIDE RECORDS SUMMARY | 2025-05-21 23:26 | XMS_ITS | Encounter Summary ---
Author Organization [facility] Address [address] [place] [address] Phone Care Team Providers Care Wrapper Sizer Name Role Phone Sana Gonzales MD Primary Care Provider [phone] Yaritza Diamond MD Primary Care Provider + [phone] Encounter Details Date Type Department Care Team (Late st Contact Info) Description 02/11/2024 Procedure Pass [facility], Ct Scan - [facility] [address] [place] [address] Social History Tobacco Use Types Packs/Day Years [...] with a working camera? Not on file Sex and Gender Information Value Date Recorded [...] documented as of this encounter Care Teams Wrapper Sizer Relationship Specialty Start Date End Date Sana Gonzales MD [address] [place] [address] PCP - General Family Medicine 07/13/23 07/05/24 Yaritza Diamond MD [address] [place] [id number] PCP - General Family Medicine 07/06/24 documented as of this encounter Additional Source Comments The information contained in this document represents components of the legal health record. It is not the complete legal health record.[facility]
--- OUTSIDE RECORDS SUMMARY | 2025-05-21 23:26 | XMS_ITS | Encounter Summary ---
Author Organization [facility] Address [address] [place] [address] Phone Care Team Providers Care Pizza Chef Name Role Phone Sana Gonzales MD Primary Care Provider [phone] Yaritza Diamond MD Primary Care Provider + [phone] Encounter Details Date Type Department Care Team (Late st Contact Info) Description 04/22/2024 Procedure Pass [facility], Ct Scan - [facility] [address] [place] [address] Social History Tobacco Use Types Packs/Day Years [...] Score (Lifetime/Recent) Answer Date of Assessment Author No Risk Indicated 04/22/2024 5:57 PM EDT Ana Becerra RN * [place] Suicide Severity Rating Scale (Screener/Recent Self-Report) Question Answer Date of Assessment Author 1. Wish to be (Past 1 Month) No 024 5:57 PM EDT Ana Becerra RN 2. Non-Specific Active Suici kya Thoughts (Past 1 Month) No 04/22/2024 5:57 PM EDT Kassidy Becerra RN 6. Suicidal Behavior (Lifetime) No 5:57 PM EDT Ana Becerra RN documented as of this encounter Plan of Treatment Not on file documented as of this encounter Visit Diagnoses Not on filedocumented in this encounter Additional Health Concerns Infection Onset Date Last Indicated Resolved Time CoV-Risk 10/11/2024 10/11/2024 10/22/2024 1:22 AM EDT documented as of this encounter Care Teams Pizza Chef Relationship Specialty Start Date End Date Saan Gonzales MD [address] [place] [address] [email or web address] PCP - General Family Medicine 07/13/23 07/05/24 Yaritza Diamond MD [address] [place] [id number] PCP - General Family Medicine 07/06/24 documented as of this encounter Additional Source Comments The information contained in this document represents components of the legal health record. It is not the complete legal health record.[facility]
--- OUTSIDE RECORDS SUMMARY | 2025-05-21 23:26 | XMS_ITS | Encounter Summary ---
Author Organization [facility] Address [address] [place] [address] Phone Care Team Providers Care Linotype Worker Name Role Phone Yaritza Diamond MD Primary Care Provider + [phone] Encounter Details Date Type Department Care Team (Late st Contact Info) Description 10/18/2024 Procedure Pass [facility], Ct Scan - [facility] [address] [place] [address] Social History Tobacco Use Types Packs/Day Years [...] 1:32 AM EDT Hailey Medina RN * [place] Suicide Severity Rating Scale (Screener/Recent Self-Report) Question [...] documented as of this encounter Care Teams Linotype Worker Relationship Specialty Start Date End Date Yaritza Diamond MD [address] [place] [phone] [email or web address] PCP - General Family Medicine 07/06/24 documented as of this encounter Additional Source Comments The information contained in this document represents components of the legal health record. It is not the complete legal health record.[facility]
--- OUTSIDE RECORDS SUMMARY | 2025-05-21 23:26 | XMS_ITS | Encounter Summary ---
Author Organization [facility] Address [address] [place] [address] Phone Care Team Providers Care Sales Service Route Manager Name Role Phone Sana Gonzales MD Primary Care Provider +- [phone] Yaritza [place] MD Primary Care Provider + [phone] Reason for Referral * MRI/CAT Scan - Closed Specialty Diagnoses / Procedures Referred By Boris bueno Referred To Contact Radiology Diagnoses Seizure disorder Procedures MRI Brain Ritu Vega CNP Phone: tel: fax: Referral ID Status Reason Start Date Expiration Date Visits Re quested Visits Authorized [id number] Closed 02/02/2024 02/01/2025 1 1 Encounter Details Date Type Department Care Team (Latest Contact Info) Description 02/02/2024 Transcribe Orders Virtual Department [address] [place] [address] Ritu Vega CNP [address] [place] [address] Seizure disorder (Primary Dx) Social History Tobacco Use Types Packs/Day Years [...] on file documented as of this encounter Results * MRI BRAIN WITH AND WITHOUT CONTRAST (02/09/2024 5:53 PM EDT) Anatomical Region Laterality Modality Head Magnetic Resonan ce 02/11/2024 8:52 AM EDT Impressions 02/11/2024 9:00 AM EDT 1. Areas of cortical and subcortical FLAIR hyperintensity involving the bilateral postcentral gyri are nonspecific and may represent postictal changes. 2. Decreased volume of the left hippocampus, suspicious for mesial temporal sclerosis. 3. Few scattered non-specific bilateral supratentorial white matter T2/FLAIR hyperintensities. Differential considerations are broad, and include migraines, early microangiopathic ischemic change, gliosis as a sequela from prior injury or infection, Lyme disease, demyelination, and vasculitis, among numerous other possibilities. 4. No acute territorial infarct or intracranial hemorrhage. Narrative 02/11/2024 9:00 AM EDT MRI BRAIN WITH AND WITHOUT CONTRAST Referring clinician's provided indication for this examination in [facility]: Outside Radiology Order; Seizure disorder TECHNIQUE: MRI BRAIN WITH AND WITHOUT CONTRAST Multi-sequence, multi-planar MRI of the brain was performed before and after intravenous contrast. COMPARISON: None. FINDINGS: Brain Parenchyma: There is decreased volume of the left hippocampus compared to right, without associated signal abnormality. No acute territorial infarct or intracranial hemorrhage. There are few scattered foci of T2/FLAIR hyperintensity in the subcortical and periventricular white matter. There is a linear area of subcortical FLAIR hyperintensity involving the right postcentral gyrus (series 6, images 40 through 42). There is an additional focus of cortical and subcortical FLAIR hyperintensity involving the left postcentral gyrus (series 6 image 42).. Ventricular System and Extra-Axial Spaces: Normal. No evidence of midline shift or hydrocephalus. Extracranial Structures: Mild scattered mucosal thickening in the paranasal sinuses. Procedure Note Daniel Olmedo MD - 02/11/2024 MRI BRAIN WITH AND WITHOUT CONTRAST Referring clinician's provided indication for this examination in [facility]:Outside Radiology Order; Seizure disorder TECHNIQUE: MRI BRAIN WITH AND WITHOUT CONTRAST Multi-sequence, multi-planar MRI of the brain was performed before andafter intravenous contrast. COMPARISON: None. FINDINGS: Brain Parenchyma: There is decreased volume of the left hippocampuscompared to right, without associated signal abnormality. No acute territorial infarct or intracranial hemorrhage. There are few scattered foci of T2/FLAIR hyperintensity in the subcorticaland periventricular white matter. There is a linear area of subcortical FLAIR hyperintensity involving theright postcentral gyrus (series 6, images 40 through 42). There is anadditional focus of cortical and subcortical FLAIR hyperintensityinvolving the left postcentral gyrus (series 6 image 42).. Ventricular System and Extra-Axial Spaces: Normal. No evidence of midlineshift or hydrocephalus. Extracranial Structures: Mild scattered mucosal thickening in theparanasal sinuses. IMPRESSION: 1. Areas of cortical and subcortical FLAIR hyperintensity involving thebilateral postcentral gyri are nonspecific and may represent postictalchanges. 2. Decreased volume of the left hippocampus, suspicious for mesialtemporal sclerosis. 3. Few scattered non-specific bilateral supratentorial white matterT2/FLAIR hyperintensities. Differential considerations are broad, andinclude migraines, early microangiopathic ischemic change, gliosis as asequela from prior injury or infection, Lyme disease, demyelination, andvasculitis, among numerous other possibilities. 4. No acute territorial infarct or intracranial hemorrhage. Ritu Vega WHITTLING ROOM OPERATOR IMG MR HEAD/NECK F inal Result documented in this encounter Visit Diagnoses Diagnosis Seizure disorder- Primary Unspecified epilepsy without mention of intractable epilepsy Seizure disorder Unspecified epilepsy without mention of intractable epilepsy documented in this encounter Additional Health Concerns Infection Onset Date Last Indicated Resolved Time CoV-Risk 10/11/2024 10/11/2024 10/22/2024 1:22 AM EDT documented as of this encounter Care Teams Sales Service Route Manager Relationship Specialty Start Date End Date Sana Gonzales MD [address] [place] [address] PCP - General Family Medicine 07/13/23 07/05/24 Yaritza [place] MD [address] [place] [id number] PCP - General Family Medicine 07/06/24 documented as of this encounter Additional Source Comments The information contained in this document represents components of the legal health record. It is not the complete legal health record.[facility]
--- OUTSIDE RECORDS SUMMARY | 2025-05-21 23:26 | XMS_ITS | Encounter Summary ---
Author Organization [facility] Address [address] [place] [address] Phone Care Team Providers Care Concrete Pump Operator Helper Name Role Phone Yaritza [place] MD Primary Care Provider + [phone] Encounter Details Date Type Department Care Team (Late st Contact Info) Description 01/09/2025 Procedure Pass [facility], Ct Scan - [facility] [address] [place] [address] Social History Tobacco Use Types Packs/Day Years [...] enough money to get more. Sometimes True 01/01 Residential Stability Answer Date Recor ded What is your housing situation today? I do not have housing (staying in a hotel, in a custodial, living outside on the street, on a beach, in a car, or in a park) 01/10/2025 How many times have you move d in the past 12 months? Two or more times 01/10/2025 Paying for Meds Answer Date Recorded Do you have trouble paying for medicines? No 01/10/2025 Paying Utility Bills Answer Date Record ed Do you have trouble paying your heating or elect ricity bill? No 01/10/2025 Transportation Answer Date Recorded Has the lack of transportati on kept you from medical appointments or from getting medications? Yes 01/10/2025 Digital Access Answer Date Recorded No 01/10/2025 Yes 01/10/2025 Do you have reliable internet access at home? Ye s 01/10/2025 Do you have a device (e.g., phone, tablet, computer) with a working camera? Yes 01/10/2025 Intimate Partner Violence Answer Date R ecorded Are you denied basic needs s uch as food, clothing, or medical care? No 01/10/2025 In the past 12 months have y ou been in a relationship with a person who hurts, threatens, or tries to control you? No 01/10/2025 Are you denied basic needs s uch as food, clothing, or medical care? No 01/10/2025 In the past 12 months have y ou been in a relationship with a person who hurts, threatens, or tries to control you? No 01/10/2025 Sex and Gender Information Value Date Recorded Sex Assigned at Male 08/10/2017 9:38 AM EST Legal Sex Male 9:32 PM EDT Gender Identity Male 08/10/2017 9:38 AM EST Sexual Orientation Straight 08/10/2017 9: 38 AM EST documented as of this encounter Functional Status * Calculated C-SSRS Risk Score (Lifetime/Recent) Answer Date of Assessment Author High Risk 01/10/2025 12:14 PM EDT Valencia Still RN * [place] Suicide Severity Rating Scale (Screener/Recent Self-Report) Question Answer Date of Assessment Author 1. Wish to be (Past 1 Month) Yes 025 12:14 PM EDT [place] Still, PREM 2. Non-Specific Active Suici kya Thoughts (Past 1 Month) Yes 01/10/2025 12:14 PM EDT Clemente Still , RN 3. Active Suicidal Ideation with any Methods (Not Plan) Without Intent to Act (Past 1 Month) Yes 01/10/2025 12:14 PM EDT Clemente Still, RN 4. Active Suicidal Ideation with Some Intent to Act, Without Specific Plan (Past 1 Month) Yes 01/10/2025 12:14 PM EDT Clemente Still RN 5. Active Suicidal Ideation with Specific Plan and Intent (Past 1 Month) Yes 01/10/2025 12:14 PM EDT Clemente Still RN 6. Suicidal Behavior (Lifetime) Yes 12:14 PM EDT Clemente Still RN 6. Suicidal Behavior (3 Months) No 12:14 PM EDT Clemente Still RN documented as of this encounter Plan of Treatment Not on file documented as of this encounter Visit Diagnoses Not on filedocumented in this encounter Care Teams Concrete Pump Operator Helper Relationship Specialty Start Date End Date Yaritza [place] MD [address] [place] [address] [email or web address] PCP - General Family Medicine 07/06/24 documented as of this encounter Additional Source Comments The information contained in this document represents components of the legal health record. It is not the complete legal health record.[facility]
--- OUTSIDE RECORDS SUMMARY | 2025-05-21 23:26 | XMS_ITS | Encounter Summary ---
Author Organization [facility] Address [address] [place] [address] Phone Care Team Providers Care Stna Name Role Phone Sana Gonzales MD Primary Care Provider [phone]- [phone] Yaritza [place] MD Primary Care Provider + [phone] Encounter Details Date Type Department Care Team (Late st Contact Info) Description 04/22/2024 Procedure Pass [facility], Ct Scan - [facility] [address] [place] [address] Social History Tobacco Use Types Packs/Day Years [...] 5:57 PM EDT Ana Becerra RN * [place] Suicide Severity Rating Scale (Screener/Recent Self-Report) Question [...] documented as of this encounter Care Teams Stna Relationship Specialty Start Date End Date Sana Gonzales MD [address] [place] [address] [email or web address] PCP - General Family Medicine 07/13/23 07/05/24 Yaritza [place] MD [address] [place] [address] PCP - General Family Medicine 07/06/24 documented as of this encounter Additional Source Comments The information contained in this document represents components of the legal health record. It is not the complete legal health record.[facility]
--- OUTSIDE RECORDS SUMMARY | 2025-05-21 23:26 | XMS_ITS | Encounter Summary ---
Author Organization [facility] Address [address] [place] [address] Phone Care Team Providers Care Rehabilitation Case Coordinator Name Role Phone Sana Gonzales MD Primary Care Provider [phone] Yaritza [place] MD Primary Care Provider + [phone] Encounter Details Date Type Department Care Team (Late st Contact Info) Description 06/04/2024 Procedure Pass [facility], Ct Scan - [facility] [address] [place] [address] Social History Tobacco Use Types Packs/Day Years [...] Answer Date of Assessment Author High Risk 06/06/2024 5:37 AM Valencia Jackson RN * [place] Suicide Severity Rating Scale (Screener/Recent Self-Report) Question Answer Date of Assessment Author 1. Wish to be (Past 1 Month) Yes 024 5:37 AM Kellie Jackson RN 2. Non-Specific Active Suici kya Thoughts (Past 1 Month) Yes 06/06/2024 5:37 AM Kellie Jackson RN 3. Active Suicidal Ideation with any Methods (Not Plan) Without Intent to Act (Past 1 Month) Yes 06/06/2024 5:37 AM Kellie Jackson RN 4. Active Suicidal Ideation with Some Intent to Act, Without Specific Plan (Past 1 Month) No 06/06/2024 5:37 AM Kellie Jackson RN 5. Active Suicidal Ideation with Specific Plan and Intent (Past 1 Month) Yes 06/06/2024 5:37 AM Kellie Jackson RN 6. Suicidal Behavior (Lifetime) Yes 5:37 AM Kellie Jackson RN documented as of this encounter Plan of Treatment Not on file documented as of this encounter Visit Diagnoses Not on filedocumented in this encounter Additional Health Concerns Infection Onset Date Last Indicated Resolved Time CoV-Risk 10/11/2024 10/11/2024 10/22/2024 1:22 AM EDT documented as of this encounter Care Teams Rehabilitation Case Coordinator Relationship Specialty Start Date End Date Sana Gonzales MD [address] [place] [address] PCP - General Family Medicine 07/13/23 07/05/24 Yaritza [place] MD [address] [place] [address] PCP - General Family Medicine 07/06/24 documented as of this encounter Additional Source Comments The information contained in this document represents components of the legal health record. It is not the complete legal health record.[facility]
--- OUTSIDE RECORDS SUMMARY | 2025-05-21 23:26 | XMS_ITS | Encounter Summary ---
Author Organization [facility] Address [address] [place] [address] Phone Care Team Providers Care District Administrative Assistant Name Role Phone Yaritza [place] MD Primary Care Provider + [phone] Encounter Details Date Type Department Care Team (Late st Contact Info) Description 10/18/2024 Procedure Pass [facility], Ct Scan - [facility] [address] [place] [address] Social History Tobacco Use Types Packs/Day Years [...] 1:32 AM EDT Hailey Medina RN * [place] Suicide Severity Rating Scale (Screener/Recent Self-Report) Question [...] documented as of this encounter Care Teams District Administrative Assistant Relationship Specialty Start Date End Date Yaritza [place] MD [address] [place] [address] [email or web address] PCP - General Family Medicine 07/06/24 documented as of this encounter Additional Source Comments The information contained in this document represents components of the legal health record. It is not the complete legal health record.[facility]
--- OUTSIDE RECORDS SUMMARY | 2025-05-21 23:26 | XMS_ITS | Encounter Summary ---
Author Organization [facility] Address [address] [place] [address] Phone Care Team Providers Care Shredding Machine Operator Name Role Phone Yaritza [place] MD Primary Care Provider + [phone] Encounter Details Date Type Department Care Team (Late st Contact Info) Description 02/20/2025 Procedure Pass [facility], Ct Scan - [facility] [address] [place] [address] Social History Tobacco Use Types Packs/Day Years [...] housing (staying in a hotel, in a chcf, living outside on the street, on a [...] PM EDT Korina Busch , PREM * [place] Suicide Severity Rating Scale (Screener/Recent Self-Report) Question [...] on filedocumented in this encounter Care Teams Shredding Machine Operator Relationship Specialty Start Date End Date Yaritza [place] MD [address] [place] [address] [email or web address] PCP - General Family Medicine 07/06/24 documented as of this encounter Additional Source Comments The information contained in this document represents components of the legal health record. It is not the complete legal health record.[facility]
--- OUTSIDE RECORDS SUMMARY | 2025-05-21 23:26 | XMS_ITS | Encounter Summary ---
Author Organization [facility] Address [address] [place] [address] Phone Care Team Providers Care Cdl Driver Name Role Phone Sana Gonzales MD Primary Care Provider [phone]- [phone] Yaritza [place] MD Primary Care Provider + [phone] Encounter Details Date Type Department Care Team (Late st Contact Info) Description 02/02/2024 Procedure Pass [facility], [address] [address] Social History Tobacco Use Types Packs/Day Years [...] documented as of this encounter Care Teams Cdl Driver Relationship Specialty Start Date End Date Sana Gonzales MD [address] [place] [address] PCP - General Family Medicine 07/13/23 07/05/24 Yaritza [place] MD [address] [place] [address] PCP - General Family Medicine 07/06/24 documented as of this encounter Additional Source Comments The information contained in this document represents components of the legal health record. It is not the complete legal health record.[facility]
--- OUTSIDE RECORDS SUMMARY | 2025-05-21 23:26 | XMS_ITS | Encounter Summary ---
Author Organization [facility] Address [address] [place] [address] Phone Care Team Providers Care Candle Molder Hand Name Role Phone Sana Gonzales MD Primary Care Provider [phone]- [phone] Yaritza [place] MD Primary Care Provider + [phone] Encounter Details Date Type Department Care Team (Late st Contact Info) Description 04/22/2024 Procedure Pass [facility], Ct Scan - [facility] [address] [place] [address] Social History Tobacco Use Types Packs/Day Years [...] 5:57 PM EDT Ana Becerra RN * [place] Suicide Severity Rating Scale (Screener/Recent Self-Report) Question [...] documented as of this encounter Care Teams Candle Molder Hand Relationship Specialty Start Date End Date Sana Gonzales MD [address] [place] [address] [email or web address] PCP - General Family Medicine 07/13/23 07/05/24 Yaritza [place] MD [address] [place] [address] PCP - General Family Medicine 07/06/24 documented as of this encounter Additional Source Comments The information contained in this document represents components of the legal health record. It is not the complete legal health record.[facility]
--- OUTSIDE RECORDS SUMMARY | 2025-05-21 23:26 | XMS_ITS | Encounter Summary ---
Author Organization [facility] Address [address] [place] [address] Phone Care Team Providers Care Sign Painter Name Role Phone Yaritza [place] MD Primary Care Provider + [phone] Encounter Details Date Type Department Care Team (Late st Contact Info) Description 01/09/2025 Procedure Pass [facility], Ct Scan - [facility] [address] [place] [address] Social History Tobacco Use Types Packs/Day Years [...] housing (staying in a hotel, in a prison, living outside on the street, on a [...] 12:14 PM EDT Valencia Still RN * [place] Suicide Severity Rating Scale (Screener/Recent Self-Report) Question Answer Date of Assessment Author 1. Wish to be (Past 1 Month) Yes 025 12:14 PM EDT Clemente Still, PREM 2. Non-Specific Active Suici kya [...] on filedocumented in this encounter Care Teams Sign Painter Relationship Specialty Start Date End Date Yaritza [place] MD [address] [place] [address] [email or web address] PCP - General Family Medicine 07/06/24 documented as of this encounter Additional Source Comments The information contained in this document represents components of the legal health record. It is not the complete legal health record.[facility]
--- OUTSIDE RECORDS SUMMARY | 2025-05-21 23:26 | XMS_ITS | Encounter Summary ---
Author Organization [facility] Address [address] [place] [address] Phone Care Team Providers Care Table Games Dual Rate Supervisor Name Role Phone Sana Gonzales MD Primary Care Provider [phone]- [phone] Yaritza [place] MD Primary Care Provider + [phone] Encounter Details Date Type Department Care Team (Late st Contact Info) Description 02/11/2024 Procedure Pass [facility], Ct Scan - [facility] [address] [place] [address] Social History Tobacco Use Types Packs/Day Years [...] documented as of this encounter Care Teams Table Games Dual Rate Supervisor Relationship Specialty Start Date End Date Sana Gonzales MD [address] [place] [address] PCP - General Family Medicine 07/13/23 07/05/24 Yaritza [place] MD [address] [place] [address] PCP - General Family Medicine 07/06/24 documented as of this encounter Additional Source Comments The information contained in this document represents components of the legal health record. It is not the complete legal health record.[facility]
--- OUTSIDE RECORDS SUMMARY | 2025-05-21 23:26 | XMS_ITS | Encounter Summary ---
Author Organization [facility] Address [address] [place] [address] Phone Care Team Providers Care Pipe Line Repairer Name Role Phone Yaritza Diamond MD Primary Care Provider + [phone] Reason for Referral * MRI/CAT Scan - Closed Specialty Diagnoses / Procedures Referred By Conttimoteo t Referred To Contact Radiology Diagnoses Atypical chest pain Procedures NC Stress Result for Nuclear Stress Test Yaritza Diamond MD [address] [place], [place] Phone: tel: fax: [email or web address] Referral ID Status Reason Start Date Expiration Date Visits Re quested Visits Authorized [id number] Closed 12/01/2024 12/01/2025 1 1 Encounter Details Date Type Department Care Team (Late st Contact Info) Description 12/01/2024 Ancillary Orders Virtual Department [address] [place] [address] Yaritza Diamond MD [address] [place] [address] [email or web address] Atypical chest pain (Primary Dx) Social History Tobacco Use Types [...] documented as of this encounter Results * NC Stress Result for Nuclear Stress Test (12/01/2024 4:18 PM EDT) Max Predicted Heart Rate 168 bpm [facility] Max BP Systolic 184 mmHg [facility] Max BP Diastolic 96 mmHg [facility] Max HR 153 BPM [facility] Resting HR 74 BPM [facility] Resting BP Systolic 112 mmHg [facility] Resting BP Diastolic 70 mmHg [facility] Peak METS 10.1 METS [facility] Peak HR 153 BPM [facility] Anatomical Region Laterality Modality Heart Other 12/01/2024 10:1 9 AM EDT 12/01/2024 11:11 AM EDT Narrative 12/02/2024 8:03 AM EDT Impression: No ECG evidence of ischemia but symptoms of chest pain were reported. Await nuclear images. Stress Findings The resting heart rate was 74 BPM. The resting BP was 112/70 mmHg. A peak heart rate of 153 BPM was achieved. ECG REPORT- Pt exercised for 7:25 min on a ACE protocol achieving 10.10 METS. Test terminated due to fatigue. Baseline resting HR was 74 bpm. Max heart rate achieved was 153 bpm (91% MPHR). 1. EKG - Baseline EKG showed normal sinus rhythm with isolated PAC. During exercise, there were no EKG changes that met strict criteria for ischemia. 2. SYMPTOMS - Patient was asymptomatic at baseline. At peak exercise, the patient reported 4/10 slightly left-sided chest tightness/pressure which radiated to his left back. This spontaneously resolved by 2 to 3 minutes into the recovery period. 3. EXERCISE PHYSIOLOGY - Average functional capacity for age. Normal blood pressure response to exercise. 4. ARRHYTHMIAS - Frequent isolated PACs and PVCs. Occasional ventricular couplets. Conclusion - Abnormal stress test. There were no ischemic EKG changes. There were symptoms concerning for angina. Nuclear images pending and will be reported separately. See attached stress report for full details. Mildred Rene PA-C with Dr. Denson. Response to Stress The patient exercised for minutes and seconds, achieving 10.1 METS at peak exercise. Baseline blood pressure was 112/70 mmHg, and baseline heart rate was 74 bpm. The patient achieved a peak heart rate of 153 bpm, which is% of their maximum predicted heart rate. Yaritza Diamond MD CV NM CARDIAC Final Result documented in this encounter Visit Diagnoses Diagnosis Atypical chest pain- Primary Other chest pain Atypical chest pain Other chest pain documented in this encounter Care Teams Pipe Line Repairer Relationship Specialty Start Date End Date Yaritza Diamond MD [address] [place] [address] [email or web address] PCP - General Family Medicine 07/06/24 documented as of this encounter Additional Source Comments The information contained in this document represents components of the legal health record. It is not the complete legal health record.[facility]
--- OUTSIDE RECORDS SUMMARY | 2025-05-21 23:26 | XMS_ITS | Encounter Summary ---
Author Organization [facility] Address [address] [place] [address] [place] [address] Phone Care Team Providers Care Distributor Sales Consultant Name Role Phone Sana Gonzales MD Primary Care Provider [phone] Sana Gonzales MD Primary Care Provider [phone]- [phone] Yaritza Diamond MD Primary Care Provider [phone] Reason for Referral * Physical Therapy (Routine) - Closed Specialty Diagnoses / Procedures Referred By Boris bueno Referred To Contact Physical Therapy Diagnoses Encounter for rehabilitation Claudia Vick NP [address] [place] [address] Phone: tel: fax: [facility] [address] [place] [address] Phone: tel: Referral ID Status Reason Start Date Expiration Date Visits Re quested Visits Authorized [id number] Closed 08/30/2020 08/30/2021 1 1 Encounter Details Date Type Department Care Team (Latest Contact Info) Description 08/30/2020 Transcribe Orders [facility] [address] [place] [address] Claudia Vick NP [address] [place] [address] Encounter for rehabilitation (Primary Dx) Social History Tobacco Use Types Packs/Day Years Used Date Smoking Tobacco: Every Day Smokeless Tobacco: Never Alcohol Use Standard Drinks/Week Comments Yes 2 (1 standard drink = 0.6 oz pur e alcohol) two beer reported today Sex and Gender Information Value Date Recorded Sex Assigned at Male 08/10/2017 9:38 AM EST Legal Sex Male 9:32 PM EDT Gender Identity Male 08/10/2017 9:38 AM EST Sexual Orientation Straight 08/10/2017 9: 38 AM EST documented as of this encounter Plan of Treatment Scheduled Referrals Name Type Priority Associated Diagnoses Orde r Schedule Ambulatory referral to [facility] Physical Therapy Outpatient Referral Routine Encounter for rehabilitation Ordered: 08/30/2020 documented as of this encounter Visit Diagnoses Diagnosis Encounter for rehabilitation- Primary documented in this encounter Additional Health Concerns Infection Onset Date Last Indicated Resolved Time CoV-Risk 10/11/2024 10/11/2024 10/22/2024 1:22 AM EDT documented as of this encounter Care Teams Distributor Sales Consultant Relationship Specialty Start Date End Date Sana Gonzales MD PCP - General Family Medicine 08/07/17 07/12/23 Sana Gonzales MD [address] [place] [address] PCP - General Family Medicine 07/13/23 07/05/24 Yaritza Diamond MD [address] [place] [address] PCP - General Family Medicine 07/06/24 documented as of this encounter Additional Source Comments The information contained in this document represents components of the legal health record. It is not the complete legal health record.[facility]
--- OUTSIDE RECORDS SUMMARY | 2025-05-21 23:26 | XMS_ITS | Encounter Summary ---
Author Organization [facility] Address [address] [place] [address] Phone Care Team Providers Care Gas Combustion Engineer Name Role Phone Yaritza Diamond MD Primary Care Provider + [phone] Encounter Details Date Type Department Care Team (Late st Contact Info) Description 10/18/2024 Procedure Pass [facility], Ct Scan - [facility] [address] [place] [address] Social History Tobacco Use Types Packs/Day Years [...] 1:32 AM EDT Hailey Medina RN * [place] Suicide Severity Rating Scale (Screener/Recent Self-Report) Question [...] documented as of this encounter Care Teams Gas Combustion Engineer Relationship Specialty Start Date End Date Yaritza Diamond MD [address] [place] [address] [email or web address] PCP - General Family Medicine 07/06/24 documented as of this encounter Additional Source Comments The information contained in this document represents components of the legal health record. It is not the complete legal health record.[facility]
--- OUTSIDE RECORDS SUMMARY | 2025-05-21 23:26 | XMS_ITS | Encounter Summary ---
Author Organization [facility] Address [address] [place] [address] Phone Care Team Providers Care 7Th Grade Social Studies Teacher Name Role Phone Sana Gonzales MD Primary Care Provider [phone]- [phone] Yaritza Diamond MD Primary Care Provider + [phone] Encounter Details Date Type Department Care Team (Late st Contact Info) Description 04/22/2024 Procedure Pass [facility], Ct Scan - [facility] [address] [place] [address] Social History Tobacco Use Types Packs/Day Years [...] 5:57 PM EDT Ana Becerra RN * [place] Suicide Severity Rating Scale (Screener/Recent Self-Report) Question [...] documented as of this encounter Care Teams 7Th Grade Social Studies Teacher Relationship Specialty Start Date End Date Sana Gonzales MD [address] [place] [address] [email or web address] PCP - General Family Medicine 07/13/23 07/05/24 Yaritza Diamond MD [address] [place] [address] PCP - General Family Medicine 07/06/24 documented as of this encounter Additional Source Comments The information contained in this document represents components of the legal health record. It is not the complete legal health record.[facility]
--- OUTSIDE RECORDS SUMMARY | 2025-05-21 23:26 | XMS_ITS | Encounter Summary ---
Author Organization [facility] Address [address] [place] [address] Phone Care Team Providers Care Tax Associate Name Role Phone Yaritza Diamond MD Primary Care Provider + [phone] Encounter Details Date Type Department Care Team (Late st Contact Info) Description 04/17/2025 Procedure Pass [facility], Ct Scan - [facility] [address] [place] [address] Social History Tobacco Use Types Packs/Day Years [...] on filedocumented in this encounter Care Teams Tax Associate Relationship Specialty Start Date End Date Yaritza Diamond MD [address] [place] [address] [email or web address] PCP - General Family Medicine 07/06/24 documented as of this encounter Additional Source Comments The information contained in this document represents components of the legal health record. It is not the complete legal health record.[facility]
--- OUTSIDE RECORDS SUMMARY | 2025-05-21 23:27 | XMS_ITS | Encounter Summary ---
Author Organization [facility] Address [address] [place] [address] Phone Care Team Providers Care Associate Editor Name Role Phone Sana Gonzales MD Primary Care Provider [phone] Yaritza Diamond MD Primary Care Provider + [phone] Encounter Details Date Type Department Care Team (Late st Contact Info) Description 06/04/2024 Procedure Pass [facility], Ct Scan - [facility] [address] [place] [address] Social History Tobacco Use Types Packs/Day Years [...] 06/06/2024 5:37 AM Valencia Jackson RN * [place] Suicide Severity Rating Scale (Screener/Recent Self-Report) Question [...] documented as of this encounter Care Teams Associate Editor Relationship Specialty Start Date End Date Sana Gonzales MD [address] [place] [address] PCP - General Family Medicine 07/13/23 07/05/24 Yaritza Diamond MD [address] [place] [address] PCP - General Family Medicine 07/06/24 documented as of this encounter Additional Source Comments The information contained in this document represents components of the legal health record. It is not the complete legal health record.[facility]
--- OUTSIDE RECORDS SUMMARY | 2025-05-21 23:27 | XMS_ITS | Encounter Summary ---
Author Organization [facility] Address [address] [place] [address] Phone Care Team Providers Care Manager Residential Name Role Phone Yaritza Diamond MD Primary Care Provider + [phone] Encounter Details Date Type Department Care Team (Late st Contact Info) Description 10/10/2024 Ancillary Orders Virtual Department [address] [place] [address] Yaritza Diamond MD [address] [place] [address] [email or web address] Atypical chest pain (Primary Dx) Social History [...] as food, clothing, or medical care? No 10/11/2024 In the past 12 months have y ou been in a relationship with a person who hurts, threatens, or tries to control you? No 10/11/2024 Are you denied basic needs s uch as food, clothing, or medical care? No 10/11/2024 In the past 12 months have y ou been in a relationship with a person who hurts, threatens, or tries to control you? No 10/11/2024 Sex and Gender Information Value Date Recorded Sex Assigned at Male 08/10/2017 9:38 AM EST Legal Sex Male 9:32 PM EDT Gender Identity Male 08/10/2017 9:38 AM EST Sexual Orientation Straight 08/10/2017 9: 38 AM EST documented as of this encounter Functional Status * Calculated C-SSRS Risk Score (Lifetime/Recent) Answer Date of Assessment Author No Risk Indicated 10/11/2024 6:52 PM EDT Clemente Still RN * [place] Suicide Severity Rating Scale (Screener/Recent Self-Report) Question Answer Date of Assessment Author 1. Wish to be (Past 1 Month) No 025 6:52 PM EDT Clemente Still RN 2. Non-Specific Active Suici kya Thoughts (Past 1 Month) No 10/11/2024 6:52 PM EDT Clemente Still RN 6. Suicidal Behavior (Lifetime) No 5 6:52 PM EDT Clemente Still RN documented as of this encounter Plan of Treatment Not on file documented as of this encounter Visit Diagnoses Diagnosis Atypical chest pain- Primary Other chest pain documented in this encounter Additional Health Concerns Infection Onset Date Last Indicated Resolved Time CoV-Risk 10/11/2024 10/11/2024 10/22/2024 1:22 AM EDT documented as of this encounter Care Teams Manager Residential Relationship Specialty Start Date End Date Yaritza Diamond MD [address] [place] [address] [email or web address] PCP - General Family Medicine 07/06/24 documented as of this encounter Additional Source Comments The information contained in this document represents components of the legal health record. It is not the complete legal health record.[facility]
--- OUTSIDE RECORDS SUMMARY | 2025-05-21 23:27 | XMS_ITS | Encounter Summary ---
Author Organization [facility] Address [address] [place] [address] Phone Care Team Providers Care Travel Occupational Therapist Name Role Phone Yaritza Diamond MD Primary Care Provider + [phone] Reason for Referral * MRI/CAT Scan - Pending Review Specialty Diagnoses / Procedures Referred By Boris bueno Referred To Contact Radiology Diagnoses Atypical chest pain Procedures NC Myocardial Perfusion Exercise Multiple Yaritza Diamond MD Phone: tel: fax: [email or web address] Referral ID Status Reason Start Date Expiration Date V isits Requested Visits Authorized [id number] Pending Review 08/30/2024 08/30/2025 4 4 Encounter Details Date Type Department Care Team (Late st Contact Info) Description 08/30/2024 Transcribe Orders Virtual Department [address] [place] [address] Yaritza Diamond MD [address] [place] [address] [email or web address] Atypical chest pain (Primary Dx) Social History [...] as food, clothing, or medical care? No 08/10/2024 In the past 12 months have y ou been in a relationship with a person who hurts, threatens, or tries to control you? No 08/10/2024 Are you denied basic needs s uch as food, clothing, or medical care? No 08/10/2024 In the past 12 months have y ou been in a relationship with a person who hurts, threatens, or tries to control you? No 08/10/2024 Sex and Gender Information Value Date Recorded Sex Assigned at Male 08/10/2017 9:38 AM EST Legal Sex Male 9:32 PM EDT Gender Identity Male 08/10/2017 9:38 AM EST Sexual Orientation Straight 08/10/2017 9: 38 AM EST documented as of this encounter Plan of Treatment Not on file documented as of this encounter Results * NC Myocardial Perfusion Exercise Multiple (12/01/2024 9:23 AM EDT) Max Predicted Heart Rate 168 bpm [facility] Anatomical Region Laterality Modality Heart, Vascular Nuclear Medicine 12/01/2024 11:2 4 AM EDT Impressions 12/02/2024 8:31 AM EDT Left ventricular ejection fraction: 67% Myocardial perfusion images demonstrate no evidence of ischemia or infarction despite anginal symptoms. Narrative 12/02/2024 8:31 AM EDT EXAM: NC MYOCARDIAL PERFUSION EXERCISE, MULTI CLINICAL INDICATION: Outside Radiology Order. TECHNIQUE: According to standard departmental protocol, the patient was injected with 10.5 mCi of TC-99M Sestamibi IV at rest and ungated SPECT myocardial images were obtained. Subsequently, a stress test was performed and 32.9 mCi of TC-99M Sestamibi was injected at peak stress. After 30 to 60 minutes, gated SPECT images were obtained and assessed for myocardial perfusion and left ventricular function. Stress EKG findings were interpreted by cardiology and are reported separately. Please refer to that report in [facility]. COMPARISON: None. FINDINGS: PERFUSION: Myocardial perfusion images show no evidence of scar or ischemia. VENTRICULAR SIZE AND FUNCTION: Left ventricular ejection fraction within normal limits. Left ventricular size within normal limits. LV EF: 67% TID Ratio: 1.05 IMAGE QUALITY: Good Procedure Note Vivian Montanez MD - 12/02/2024 EXAM: NC MYOCARDIAL PERFUSION EXERCISE, MULTI CLINICAL INDICATION: Outside Radiology Order. TECHNIQUE: According to standard departmental protocol, the patient wasinjected with 10.5 mCi of TC-99M Sestamibi IV at rest and ungated SPECTmyocardial images were obtained. Subsequently, a stress test was performedand 32.9 mCi of TC-99M Sestamibi was injected at peak stress. After 30 to60 minutes, gated SPECT images were obtained and assessed for myocardialperfusion and left ventricular function. Stress EKG findings were interpreted by cardiology and are reportedseparately. Please refer to that report in [facility]. COMPARISON: None. FINDINGS: PERFUSION: Myocardial perfusion images show no evidence of scar orischemia. VENTRICULAR SIZE AND FUNCTION: Left ventricular ejection fraction withinnormal limits. Left ventricular size within normal limits. LV EF: 67% TID Ratio: 1.05 IMAGE QUALITY: Good IMPRESSION: Left ventricular ejection fraction: 67% Myocardial perfusion images demonstrate no evidence of ischemia orinfarction despite anginal symptoms. us Yaritza Diamond MD CV NM CARDIAC Final Result documented in this encounter Visit Diagnoses Diagnosis Atypical chest pain- Primary Other chest pain Atypical chest pain Other chest pain documented in this encounter Additional Health Concerns Infection Onset Date Last Indicated Resolved Time CoV-Risk 10/11/2024 10/11/2024 10/22/2024 1:22 AM EDT documented as of this encounter Care Teams Travel Occupational Therapist Relationship Specialty Start Date End Date Yaritza Diamond MD [address] [place] [address] [email or web address] PCP - General Family Medicine 07/06/24 documented as of this encounter Additional Source Comments The information contained in this document represents components of the legal health record. It is not the complete legal health record.[facility]
--- NOTE | 2025-05-21 23:43 | PC.NURSE ---
pt medicated per mar.
[2025-05-22] LABS: Cannabinoid Screen Urine POSITIVE (Not Detect)
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
--- NOTE | 2025-05-22 07:18 | PC.NURSE ---
Assumed care, report received. Pt is currently sleeping, he is brought breakfast.
[2025-05-22 08:26] VITALS: BP 132/83; PULSE 63; RESP 14; TEMP 36.1; O2SAT 97
[2025-05-22 08:48] LABS: MANUAL DIFF FLAG NO
[2025-05-22 08:52] LABS: Hematocrit 40.8 % (42.0-52.0); Hemoglobin 14.1 g/dl (14.0-18.0); Imm Gran Abs Auto 0.02 X10*3/uL (0.00-0.03); Imm Gran Pct Auto 0.3 % (0.0-0.4); Lymphocytes Absolute Auto 2.3 X10*3/uL (1.2-4.9); Mean Corpuscular HGB Conc 34.6 g/dl (31.0-36.0); Mean Corpuscular Hemoglobin 30.5 pg (27.0-33.0); Mean Corpuscular Volume 88.1 fL (80.0-98.0); NRBC Abs Auto 0.000 X10*3/uL (0.0-0.012); NRBC Pct Auto 0.0 /100WBC (0.0-0.2); Platelet Count 264 X10*3/uL (160-400); Red Blood Count 4.63 X10*6/uL (4.60-5.80); White Blood Count 6.7 X10*3/uL (4.8-10.8)
[2025-05-22 09:05] LABS: Alanine Aminotransferase 37 U/L (0-40); Albumin Level 4.2 g/dL (3.5-5.0); Alkaline Phosphatase 87 U/L (39-117); Anion Gap 14 (12-20); Aspartate Amino Transferase 28 U/L (5-37); Blood Urea Nitrogen 16 mg/dL (9-16); Calcium 9.1 mg/dL (8.4-10.2); Carbon Dioxide 24 mmol/L (22-29); Chloride 106 mmol/L (96-108); Creatinine Clr Calc Pharmacy 134.2; Estimated Glomerular Filt Rate > 60; Potassium 4.2 mmol/L (3.3-5.1); Sodium 140 mmol/L (135-145); Total Protein 6.4 g/dL (6.5-8.0)
[2025-05-22 09:06] LABS: Acetaminophen LAB < 3 mcg/mL (<30); Salicylate < 5.0 mg/dL (15-30)
--- NOTE | 2025-05-22 09:11 | MHC.EDTECH ---
Patient resting/sleeping in back communal area (BH8). Patient slightly disagreeable to patient in BH7 having the TV on. This tech provided patient with earplugs. Patient opted to not use them, and is resting quietly in his chair/bed.
--- NOTE | 2025-05-22 09:12 | MHC.CARE ---
Pt meets the critera for IPLOC and is on a Section 12a. ED provider in agreement.
--- NOTE | 2025-05-22 11:40 | PC.NURSE ---
Pt is currently sleeping, he was moved into [facility] and has remained calm and quiet.
--- NOTE | 2025-05-22 11:56 | PHA.MEDREC ---
Pharmacy Consult ? Medication Reconciliation Pharmacy has reviewed the medication reconciliation completed by nursing.
--- NOTE | 2025-05-22 12:33 | ECG_ITS ---
Test Reason : QTC CHECK Blood Pressure : */* mmHG Vent. Rate : 60 BPM Atrial Rate : 60 BPM P-R Int : 142 ms QRS Dur : 88 ms QT Int : 438 ms P-R-T Axes : 67 70 62 degrees QTcB Int : 438 ms Normal sinus rhythm Normal ECG When compared with ECG of 10-Jun-2024 08:52, No significant change was found Referred By: Gabby Lr Electronically Signed By: ANDRES PROCTOR MD
[2025-05-22 18:03] VITALS: RESP 18
--- NOTE | 2025-05-22 20:21 | MHC.CARE ---
Pt accepted to [facility], [address] [place] [phone] for tomorrow 05/23 no ETA yet, accepting facility will call for N2N. Accepting is Dr. Yi
[2025-05-22 22:00] VITALS: RESP 18
--- NOTE | 2025-05-23 00:02 | PC.NURSE ---
Assumed care at 1845. A&Ox4. Presents as calm & cooperative. Clear speech and normal affect. Adherent to HS scheduled medications. No PRN's given. Mouth checks completed. Hygiene unkempt and malodorous. Agreeable to alert staff if feeling unsafe. 15 minute safety checks ongoing. Plan of care ongoing.
--- NOTE | 2025-05-23 01:46 | PC.NURSE ---
N2N attempted with [place] [phone] [facility]. Facility is currently closed, instructed to call back after 07:30AM. Given approval to set up transport anytime after 0730AM. BLS scheduled for 0830AM departure to arrive at 10:00AM.
[2025-05-23 06:19] VITALS: BP 112/86; PULSE 73; RESP 17; TEMP 36.6; O2SAT 100
--- NOTE | 2025-05-23 07:06 | PC.NURSE ---
Assumed care, report received. Pt is awake, calm and cooperative. He is brought breakfast.
[2025-05-23 08:26] VITALS: BP 112/86; PULSE 73; RESP 17; TEMP 36.6; O2SAT 100
[2025-05-25 08:08] LABS: Levetiracetam Keppra 14.1 mcg/mL (6.0-46.0)
== END 2025-05-23 08:27 ==
PROVIDERS: Emergency Provider Emergency Medicine; PCP Family Medicine
DX: R45.851 Suicidal ideations (principal); F31.9 Bipolar disorder, unspecified; F41.9 Anxiety disorder, unspecified; F23 Brief psychotic disorder; Z59.811 Housing instability, housed, with risk of homelessness; Z79.899 Other long term (current) drug therapy
CPT/HCPCS: 36415; 80053; 80143; 80177; 80179; 80307; 85025; 93005; 99285; S9485

== ENCOUNTER → 2025-05-22 12:33 | Outpatient (BNV) | payer MEDICARE, MEDICAID, SELFPAY | PROVIDERS: Emergency Provider Emergency Medicine; PCP Family Medicine; Visit Provider Internal Medicine Cardiovascular Disease | DX: Z13.6 Encounter for screening for cardiovascular disorders (principal) | CPT/HCPCS: 93010 ==